=== PATIENT | female | born 2000 | race Caucasian/White ===

== ENCOUNTER → 2019-10-28 | Outpatient (CLI) | payer OTHER ==
--- NOTE | 2019-10-28 20:33 | NEURO WORKBENCH EEG REPORT ---
EEG Report Patient: Jessi Brown ID: [id number] Referring Doctor: Wicho Flores MD DOS: 10/28/2019 Medications: Keppra, Lamotrigine History This is a 19 year old right handed female with a history of epilepsy since age 15. Her last seizure was 11/29/2015. This EEG was requested for seizures. EEG Interpretation This EEG was recorded in the awake, drowsy, and sleep states. The awake EEG is characterized by a well-organized background with a well developed and reactive posterior dominant rhythm of 9.5 Hz. The remainder of the background was characterized by a combination of alpha and beta frequencies. There were prominent lambda waves. Drowsiness was characterized by slowing of the background rhythms. Vertex waves and sleep spindles were seen in the midline head regions. There were very sharp central waves during sleep consistent with vertex waves. Photic stimulation resulted in a good driving response. Hyperventilation resulted in generalized slowing of the background. There were sharply contoured waveforms mainly in the left central but also high amplitude in the temporal regions, but no definitive epileptiform abnormalities. The EKG showed a regular rhythm. EEG Classification * Normal EEG Impression This EEG is within normal limits for age. INTERPRETING NEUROLOGIST: Staci Salamanca MD, FRCPC Board Certified in Neurology, with special qualification in Child Neurology, and in Clinical Neurophysiology [facility]
== END ==
LOC: NEURO 12:34
PROVIDERS: ATTEND Pediatrics
DX: G40.209 Localization-related (focal) (partial) symptomatic epilepsy and epileptic syndromes with complex partial seizures, not intractable, without status epilepticus (principal)
CPT/HCPCS: 95819